=== PATIENT | female | born 1970 | race Two or more races ===

== ENCOUNTER 2018-06-27 07:13 | Emergency (ER) | payer OTHER ==
[~2018-06-27] VITALS: Ht 152.4 cm; Wt 63.5 kg
[~2018-06-27 07:13] MED LIST: ANTIVERT25 M1 PO
[2018-06-27] MEDS ORDERED: METOCLOPRAMIDE10 MG PO (11:16)
[2018-06-27] MEDS ORDERED: MECLIZINE HCL25 MG PO (11:16)
== END 2018-06-27 11:51 | disposition home or self-care (01) ==
LOC: ER 07:13
DX: R42 Dizziness and giddiness (principal)

== ENCOUNTER 2019-10-17 02:21 | Emergency (ER) | payer OTHER ==
[~2019-10-17] VITALS: Ht 152.4 cm; Wt 65.8 kg
[~2019-10-17 02:21] MED LIST changes: +MECLIZINE HCL25 MG PO; +METOCLOPRAMIDE10 MG PO
== END 2019-10-17 09:44 | disposition home or self-care (01) ==
LOC: ER 02:21
DX: R42 Dizziness and giddiness (principal)

== ENCOUNTER → 2023-05-10 | Emergency (ER) | payer OTHER ==
[~2023-05-10] VITALS: Ht 162.6 cm; Wt 68.0 kg
== END | disposition left against medical advice (07) ==
LOC: ER 22:20
DX: M25.572 Pain in left ankle and joints of left foot (principal); Z88.6 Allergy status to analgesic agent